=== PATIENT | male | born 1945 | race American Indian/Alaskan Native ===

== ENCOUNTER 2017-05-14 15:07 | Inpatient (IN) | payer MEDICARE ==
[2017-05-14 17:25] LABS: Basophils % (Auto) 0.2 % (0.0-1.8); Eosinophils % (Auto) 0.1 % (0.0-4.3); Hematocrit 29.8 % (35.5-45.6); Hemoglobin 10.1 gm/dl (11.8-15.2); Mean Corpuscular HGB Conc 34 % (32-34); Mean Corpuscular Hemoglobin 29 pg (28-32); Mean Corpuscular Volume 85 fl (84-94); Platelet Count 302 K/mm3 (140-440); Red Blood Count 3.49 M/mm3 (3.65-5.03); Red Cell Distribution Width 15.6 % (13.2-15.2); White Blood Count 8.6 K/mm3 (4.5-11.0)
--- NOTE | 2017-05-14 17:53 | Cat Scan Report ---
FINAL REPORT PROCEDURE: CT HEAD/BRAIN WO CON TECHNIQUE: Computerized tomography of the head was performed without contrast material. HISTORY: Altered Mental Status COMPARISON: No prior studies are available for comparison. FINDINGS: Skull and scalp: Normal. Paranasal sinuses: Mucosal thickening with air-fluid levels left posterior maxillary sinus Ventricles and subarachnoid spaces: Normal. Cerebrum: No evidence of hemorrhage, acute infarction or mass . Cerebellum and brainstem: No evidence of hemorrhage, acute infarction or mass. Vasculature: No evidence of hyperdense MCA sign. Comments: Moderate diffuse atrophy with mild periventricular microischemic change and central lacunar infarct disease IMPRESSION: No acute intracranial pathology seen at this time. If symptoms and or concern persists recommend followup MRI.
--- NOTE | 2017-05-14 17:57 | Cat Scan Report ---
FINAL REPORT PROCEDURE: CT CERVICAL SPINE WO CON TECHNIQUE: Computerized tomography of the cervical spine was performed from the skull base to T1 without contrast material. HISTORY: AMS COMPARISON: No prior studies are available for comparison. FINDINGS: Moderate diffuse degenerative changes cervical spine with anterior osteophytes extending from C3 through C7. Disc space narrowing C5-6 C6-7. No definite acute fracture seen at this time. Skull base appears intact. No fluid mastoids. Chronic odontoid ligamentous calcifications. IMPRESSION: No definite evidence acute fracture seen at this time
[2017-05-14 18:14] LABS: Anion Gap TNR mmol/L; Carbon Dioxide TNR mmol/L (22-30); Chloride TNR mmol/L (98-107); Potassium TNR mmol/L (3.6-5.0); Sodium TNR mmol/L (137-145)
[2017-05-14 18:15] LABS: BUN/Creatinine Ratio TNR; Blood Urea Nitrogen TNR mg/dL (9-20); Calcium TNR mg/dL (8.4-10.2); Glucose TNR mg/dL (75-100)
[2017-05-14 18:16] LABS: Alanine Aminotransferase TNR units/L (7-56); Albumin TNR g/dL (3.9-5); Albumin/Globulin Ratio TNR %; Alkaline Phosphatase TNR units/L (35-129); Bilirubin,Total TNR mg/dL (0.1-1.2); Total Protein TNR g/dL (6.3-8.2)
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
[2017-05-14 19:20] LABS: Creatine Kinase MB 3.8 ng/mL (0.0-4.0)
[2017-05-14 19:23] LABS: Albumin 3.3 g/dL (3.9-5); Bilirubin,Total 0.3 mg/dL (0.1-1.2); Calcium 8.4 mg/dL (8.4-10.2); Chloride 106.5 mmol/L (98-107)
[2017-05-14 19:23] LABS: Creatine Kinase 149 units/L (55-170)
[2017-05-14] MEDS ORDERED: NACL 0.9% 1000 ML 1,000 ML IV SCH (20:00)
--- NOTE | 2017-05-14 20:01 | Cat Scan Report ---
FINAL REPORT PROCEDURE: CT FACIAL BONES WO CON TECHNIQUE: Computerized tomography of the facial bones and soft tissues with axial and coronal sections performed from the cranial aspect of the frontal sinuses to the caudal portion of the mandible without contrast material. HISTORY: facial trauma COMPARISON: No prior studies are available for comparison. FINDINGS: Bones: Suspect minimally displaced fracture of the left nasal bone. Anterior alveolar ridge intact without fracture. Paranasal sinuses: Mucosal thickening of the maxillary sinuses Soft tissues: Scalp swelling hematoma left frontal periorbital region Other: None. IMPRESSION: Soft tissue swelling face with minimal nasal bone fracturing.
[2017-05-14 20:02] LABS: Albumin/Globulin Ratio 0.9 %; Total Protein 7.1 g/dL (6.3-8.2)
--- NOTE | 2017-05-14 21:03 | XRay Report ---
FINAL REPORT PROCEDURE: XR CHEST 1V AP TECHNIQUE: Chest radiograph anteroposterior view. CPT 00632 HISTORY: Altered Mental Status COMPARISON: No prior studies are available for comparison. FINDINGS: Heart: Normal. Mediastinum/Vessels: Mild congestion exaggerated by shallow inspiration Lungs/Pleural space: Shallow inspiration with minimal lung base atelectasis Bony thorax: No acute osseous abnormality. Life support devices: None. IMPRESSION: Shallow inspiration
[2017-05-14] MEDS ORDERED: XYLOCAINE 1% 20 mL ONE (21:11)
--- NOTE | 2017-05-15 00:30 | History and Physical Report ---
History of Present Illness Date of examination: 05/15/17 Date of admission: 05/15/17 Chief complaint: Passed out fell and injured head History of present illness: Patient is 71-year-old with history of colon cancer. He was brought in because he had a syncopal episode. Patient is a poor historian and slightly confused. He states he was outside getting out of car and could not remember anything after that, and when he woke up he was in the ambulance coming to hospital.. He apparently had a syncopal episode outside, he fell hitting his head sustaining a laceration in the left upper eyelid swelling of the left upper lip. He denies any chest pain or shortness of breath. He states he only drinks alcohol occasionally however his serum alcohol was very elevated at 0.16. Troponins were normal chest x-ray unremarkable. He will be admitted for further evaluation. Past History Past Medical History: cancer (Colon cancer 1999 s/p partial colectomy), diabetes (He states it is resolved) Past Surgical History: bowel surgery (partial colectomy) Social history: , alcohol abuse, full code Family history: no significant family history Medications and Allergies Allergies Allergy/AdvReac Type Severity Reaction Status Date / Time No Known Allergies Allergy Unverified 05/14/17 16:48 Active Meds: Active Medications Sodium Chloride (Nacl 0.9% 1000 Ml) 1,000 mls @ 125 mls/hr IV DIRECT CLARITA Review of Systems All systems: negative (no fever, no abdominal pain, no urinary symptoms. All other systems reviewed and are negative) Exam - Physical Exam Narrative exam: GEN APPEARANCE : Not in acute distress, lying in bed HEENT: Laceration left upper eyelid,sutured, periorbital hematoma, hematoma left upper lip NECK : supple, no JVD LUNGS: clear to auscultation bilaterally, no rales, no wheeze HEART: S1 and S2 regular, no murmurs, rubs or gallop, ABD: Soft, non tender, non distended, normal bowel sounds EXT: No edema, no clubbing, no cyanosis NEURO: Awake,alert, mild confused, moves all ext Psych: depressed - Constitutional Vitals: Temp Pulse Resp BP Pulse Ox 97.8 F 69 18 140/80 98 05/14/17 16:30 05/14/17 16:30 05/14/17 16:30 05/14/17 16:30 05/14/17 16:30 Results - Labs CBC & Chem 7: 05/14/17 16:53 05/14/17 18:38 Labs: Abnormal lab results 05/14/17 05/14/17 05/14/17 Range/Units 16:53 16:53 16:53 RBC 3.49 L (3.65-5.03) M/mm3 Hgb 10.1 L (11.8-15.2) gm/dl Hct 29.8 L (35.5-45.6) % RDW 15.6 H (13.2-15.2) % Lymph % (Auto) 7.5 L (13.4-35.0) % Lymph # 0.6 L (1.2-5.4) K/mm3 Seg Neutrophils % 88.4 H (40.0-70.0) % Sodium (137-145) mmol/L Carbon Dioxide (22-30) mmol/L Creatinine (0.8-1.5) mg/dL Glucose (75-100) mg/dL Lactic Acid 2.80 H* (0.7-2.0) mmol/L Albumin (3.9-5) g/dL Plasma/Serum Alcohol 0.16 H (0-0.07) gm% 05/14/17 05/14/17 Range/Units 18:38 18:38 RBC (3.65-5.03) M/mm3 Hgb (11.8-15.2) gm/dl Hct (35.5-45.6) % RDW (13.2-15.2) % Lymph % (Auto) (13.4-35.0) % Lymph # (1.2-5.4) K/mm3 Seg Neutrophils % (40.0-70.0) % Sodium 146 H (137-145) mmol/L Carbon Dioxide 19 L (22-30) mmol/L Creatinine 1.6 H (0.8-1.5) mg/dL Glucose 101 H (75-100) mg/dL Lactic Acid 3.80 H* (0.7-2.0) mmol/L Albumin 3.3 L (3.9-5) g/dL Plasma/Serum Alcohol (0-0.07) gm% Assessment and Plan Syncope. Admit to Telemetry. Obtain Echocardiogram, neuro checks Fall sustaining head injury with hematoma left periorbital area, laceration left upper eyelid. Sutures to laceration left upper eyelid. ED Physician, Dr. Carlson states sutures can be removed in 7-10 days History of colon cancer year 1999, s/p partial colectomy. Hypernatremia. sodium 146Give iv fluids. Toxic metabolic encephalopathy from alcohol. Acute kidney injury with Cr 1.7. Likely vasomotor nephropathy. Start iv fluids History of diabetes mellitus type 2. He states diabetes is resolved and he is not on any medications. Will check hemoglobin A1c and check fingerstick glucose qac and hs.. DVT prophylaxis SCDs only because of multiple hematoma Alcohol intoxication. His serum alcohol level is 0.16. He denies drinking a lot,stating he only drinks 1 beer every 3-4 months and that last drink was a month ago. Start CIWA protocol Full CODE STATUS
[2017-05-15] MEDS ORDERED: DULCOLAX PR PRN (00:31)
[2017-05-15] MEDS ORDERED: TYLENOL PO PRN (00:31)
[2017-05-15] MEDS ORDERED: ZOFRAN IV PRN (00:31)
[2017-05-15] MEDS ORDERED: MILK OF MAGNESIA PO PRN (00:31)
[2017-05-15 00:35] LABS: Urine Drugs of Abuse Note Disclamer
[2017-05-15 00:48] LABS: Bacteria,Urine 2+ /HPF (Negative); Bilirubin,Urine NEG (Negative); Blood,Urine SM (Negative); Ketones,Urine NEG (Negative); Leukocyte Esterase,Urine NEG (Negative); Mucus,Urine FEW /HPF; Nitrite,Urine POS (Negative); Protein,Urine <15 mg/dL mg/dL (Negative); Urobilinogen,Urine < 2.0 mg/dL (<2.0)
[2017-05-15] MEDS ORDERED: FOLVITE 1 MG in NACL 0.9% 50 ML IV SCH (01:00)
[2017-05-15] MEDS ORDERED: D5/0.45NS 1,000 ML IV SCH (01:00)
[2017-05-15 01:47] LABS: Magnesium 1.6 mg/dL (1.7-2.3); Phosphorous 4.1 mg/dL (2.5-4.5)
[2017-05-15 01:50] LABS: Creatine Kinase MB 3.6 ng/mL (0.0-4.0)
[2017-05-15 01:51] LABS: Creatine Kinase 130 units/L (55-170)
[2017-05-15 01:54] LABS: INR 1.03 (0.87-1.13)
[2017-05-15] MEDS ORDERED: MAGNESIUM SULFATE 2GM/50ML 2 GM/50 ML BAG IV ONE (02:01)
[2017-05-15] MEDS: NACL 0.9% IV SCH ×2 (02:43→12:15)
[2017-05-15] MEDS: FOLVITE IV SCH ×2 (02:43→12:15)
[2017-05-15] MEDS: VITAMIN B1 IV SCH ×2 (02:43→12:15)
[2017-05-15] MEDS ORDERED: XYLOCAINE 1% 20 mL INFILTRATI ONE (02:45)
[2017-05-15] MEDS ORDERED: MORPHINE IV PRN (04:05)
[2017-05-15] MEDS ORDERED: ATIVAN IV PRN (04:07)
[2017-05-15] MEDS ORDERED: LEVAQUIN 500MG/100ML 500 MG/100 ML BAG IV SCH (06:00)
[2017-05-15 07:00] LABS: Basophils % (Auto) 0.3 % (0.0-1.8); Eosinophils % (Auto) 0.2 % (0.0-4.3); Hematocrit 28.4 % (35.5-45.6); Hemoglobin 9.7 gm/dl (11.8-15.2); Mean Corpuscular HGB Conc 34 % (32-34); Mean Corpuscular Hemoglobin 29 pg (28-32); Mean Corpuscular Volume 85 fl (84-94); Platelet Count 290 K/mm3 (140-440); Red Blood Count 3.33 M/mm3 (3.65-5.03); Red Cell Distribution Width 15.8 % (13.2-15.2); White Blood Count 8.4 K/mm3 (4.5-11.0)
[2017-05-15 07:26] LABS: Anion Gap 23 mmol/L; BUN/Creatinine Ratio 9; Blood Urea Nitrogen 12 mg/dL (9-20); Calcium 8.3 mg/dL (8.4-10.2); Carbon Dioxide 21 mmol/L (22-30); Chloride 105.2 mmol/L (98-107); Glucose 100 mg/dL (75-100); Potassium 3.7 mmol/L (3.6-5.0); Sodium 145 mmol/L (137-145)
[2017-05-15 07:27] LABS: Creatine Kinase MB 2.9 ng/mL (0.0-4.0)
[2017-05-15 07:28] LABS: Creatine Kinase 109 units/L (55-170)
[2017-05-15 09:59] VITALS: BP 157/87
--- NOTE | 2017-05-15 10:18 | XRay Report ---
LEFT WRIST, 2 VIEWS History: Pain after fall. Findings: Mild diffuse soft tissue swelling is suspected. There are moderate osteoarthritic changes at the wrist joint. No evidence for displaced fracture, dislocation or ligamentous injury. Impression: Soft tissue swelling. Osteoarthritis. No acute injury identified on 2 views.
--- NOTE | 2017-05-15 10:18 | XRay Report ---
LEFT HAND, 2 VIEWS History: Pain after fall. Findings: Mild diffuse soft tissue swelling is suspected. There are moderate osteoarthritic changes at the wrist joint. No evidence for displaced fracture, dislocation or ligamentous injury. Impression: Soft tissue swelling. Osteoarthritis. No acute injury identified on 2 views.
[2017-05-15] MEDS: ATIVAN IV PRN ×2 (12:16→12:37)
[2017-05-15] MEDS ORDERED: DILAUDID IV ONE (14:11)
--- NOTE | 2017-05-15 14:17 | Discharge Summary ---
Providers - Providers Date of Admission: 05/15/17 00:31 Attending physician: ANGÉLICA TOSCANO MD Primary care physician: MEASUREMENT ADVISOR Hospitalization Reason for admission: SYNCOPE Condition: Stable Hospital course: Patient is 71-year-old with history of colon cancer. He was brought in because he had a syncopal episode. Patient is a poor historian and slightly confused. He states he was outside getting out of car and could not remember anything after that, and when he woke up he was in the ambulance coming to hospital.. He apparently had a syncopal episode outside, he fell hitting his head sustaining a laceration in the left upper eyelid swelling of the left upper lip. He denies any chest pain or shortness of breath. He states he only drinks alcohol occasionally however his serum alcohol was very elevated at 0.16. Troponins were normal chest x-ray unremarkable. He will be admitted for further evaluation. Imaging studies did come from mild nasal bone fracture patient reports no nasal pain even difficulty at this time. He reports that he fell and that is why he passed out he truly did not pass out but due to the fall he does not recall why the fall happened.As SUKHWINDER and in the past and likely related to his alcohol he was initially irate in the hospital demanding for IV Dilaudid. He is ambulating without any difficulty. He demands to be discharged and will follow-up with his primary care physician. He does not have any physical therapy needs at this time. Ice pack care for the upper eyelid has been recommended and he verbalized understanding. Patient to return 7-10 days for removal of sutures. 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 Fall sustaining head injury with hematoma left periorbital area, laceration left upper eyelid. Sutures to laceration left upper eyelid. History of colon cancer year 1999, s/p partial colectomy. Hypernatremia. Toxic metabolic encephalopathy from alcohol. Acute kidney injury with Cr 1.7. Likely vasomotor nephropathy.-Resolved Diabetes mellitus type 2. Disposition: - TO HOME OR SELFCARE Time spent for discharge: 35 mins Core Measure Documentation - Palliative Care Palliative Care/ Comfort Measures: Not Applicable - Core Measures Any of the following diagnoses?: none - VTE Discharge Requirements Deep Vein Thrombosis/Pulmonary Embolism Present on Admission: No Exam - Physical Exam Narrative exam: GEN APPEARANCE : Not in acute distress, lying in bed HEENT: Laceration left upper eyelid,sutured, periorbital hematoma, hematoma left upper lip Improving NECK : supple, no JVD LUNGS: clear to auscultation bilaterally, no rales, no wheeze HEART: S1 and S2 regular, no murmurs, rubs or gallop, ABD: Soft, non tender, non distended, normal bowel sounds EXT: No edema, no clubbing, no cyanosis NEURO: Awake,alert, oriented x 3, moves all ext Psych: irate, but calmed down - Constitutional Vitals: Temp Pulse Resp BP Pulse Ox 98.8 F 67 18 157/87 100 05/15/17 09:23 05/15/17 10:25 05/15/17 09:23 05/15/17 09:23 05/15/17 09:23 Plan Activity: advance as tolerated, fall precautions Diet: low fat Special Instructions: other (avoid etoh) Follow up with: [facility] [Provider Group] - 7 Days PRIMARY CARE,MD [Primary Care Provider] - 3-5 Days Forms: Discharge Signature Page Prescriptions: Folic Acid [Folvite] 1 mg PO QDAY #30 tablet Multivitamin Tab [Multiple Vitamin TAB (Theragran)] 1 each PO QDAY #30 tablet Thiamine [Vitamin B-1] 100 mg PO QDAY #30 tablet
[2017-05-15] MEDS ORDERED: DILAUDID PO ONE (15:00)
== END 2017-05-15 15:48 | disposition home or self-care (01) | DRG 896 ==
LOC: ED 15:07 → 4A 05-15 00:31
PROVIDERS: ADMIT Internal Medicine; ATTEND Internal Medicine
PROC: 08QPXZZ Repair Left Upper Eyelid, External Approach (ICD-10-PCS; principal; 2017-05-15)
DX: F10.129 Alcohol abuse with intoxication, unspecified (principal); G92 Toxic encephalopathy; N17.0 Acute kidney failure with tubular necrosis; E87.0 Hyperosmolality and hypernatremia; S05.32XA Ocular laceration without prolapse or loss of intraocular tissue, left eye, initial encounter; W19.XXXA Unspecified fall, initial encounter; E86.0 Dehydration; R55 Syncope and collapse; E11.9 Type 2 diabetes mellitus without complications; F41.9 Anxiety disorder, unspecified; S09.90XA Unspecified injury of head, initial encounter; Y93.89 Activity, other specified; Y92.89 Other specified places as the place of occurrence of the external cause; Y99.8 Other external cause status; Z85.038 Personal history of other malignant neoplasm of large intestine; Z90.49 Acquired absence of other specified parts of digestive tract
CPT/HCPCS: 36415; 70450; 70486; 71010; 72125; 80048; 80053; 80307; 80320; 81001; 82140; 82550; 82553; 82962; 83036; 83735; 84100; 84484; 85025; 85610; 87040; 87076; 87086; 87186; 93005; 93010; 96365; G0480; J1956; J2060; J3411; J3475